=== PATIENT | female | born 1965 | race Caucasian/White ===

== ENCOUNTER 2024-05-02 16:29 | Emergency (ER) | payer OTHER ==
[~2024-05-02] VITALS: Ht 162.6 cm; Wt 70.0 kg
[2024-05-02 16:44] VITALS: O2SAT 98
[2024-05-02] MEDS: METHOCARBAMOL 500MG TABLET PO ONE (18:48)
[2024-05-02] MEDS: IBUPROFEN 600MG TABLET PO ONE (18:49)
[2024-05-02] MEDS ORDERED: METH-653 MT (18:57)
[2024-05-02] MEDS ORDERED: IBUP-2029 MT (18:57)
[2024-05-02 20:14] VITALS: BP 139/82; PULSE 66; RESP 18; TEMP 36.6; O2SAT 98
== END 2024-05-02 20:26 | disposition home or self-care (01) ==
LOC: ER 16:29
DX: S63.612A Unspecified sprain of right middle finger, initial encounter (principal); S20.219A Contusion of unspecified front wall of thorax, initial encounter; I10 Essential (primary) hypertension; V43.52XA Car driver injured in collision with other type car in traffic accident, initial encounter; Y92.410 Unspecified street and highway as the place of occurrence of the external cause; Y93.89 Activity, other specified; Y99.8 Other external cause status
CPT/HCPCS: 71045; 73130; 99284